=== PATIENT | female | born 1980 | race African-American/Black ===

== ENCOUNTER 2016-11-13 15:06 | Emergency (ER) | payer OTHER ==
[~2016-11-13 15:06] MED LIST: CATAPRES0.1 MG; FLONASE 0.05% N16 G1; LISINOPRIL10 MG; MEDROL PO; SEROQUEL PO; SUDAFED60 MG PO; TESSALON PERLE100 M1 PO; ZANTAC PO; ZITHROMAX PO; ZOFRAN8 MG PO
[2016-11-13 16:04] LABS: BASOPHIL# 0.1 X10e3 (0-0.3); BASOPHIL% 0.6 % (0-2.5); EOSINOPHIL# 0.4 X10e3 (0-0.7); EOSINOPHIL% 3.5 % (0.0-7.0); HEMATOCRIT 40.3 % (35.0-45.0); HEMOGLOBIN 13.1 gm/dL (12.0-16.0); LYMPHOCYTE# 2.8 X10e3 (1.0-3.5); LYMPHOCYTE% 23.6 % (17.0-45.0); MEAN CELL VOLUME 90.8 FL (83-96); MEAN CORPUSCULAR HEMOGLOBIN 29.5 PG (28-34); MEAN CORPUSCULAR HGB CONC 32.4 g/dL (30-36); MEAN PLATELET VOLUME 9.6 FL (6.5-11.5); MONOCYTE# 0.8 X10e3 (0-1.0); MONOCYTE% 6.4 % (3.0-12.0); NEUTROPHIL# 7.8 X10e3 (1.5-7.1); NEUTROPHIL% 65.9 % (40-75); PLATELET COUNT 196 X10e3 (140-420); RED BLOOD COUNT 4.44 X10e (3.90-5.30); RED CELL DISTRIBUTION WIDTH 13.6 % (11.0-15.5); WHITE BLOOD COUNT 11.8 X10e3 (4.0-10.5)
[2016-11-13 16:14] LABS: DIFF IND NO
[2016-11-13 16:27] LABS: AMPHETAMINE NEG (NEG); BARBITURATES NEG (NEG); BENZODIAZEPINES NEG (NEG); COCAINE POS (NEG); MARIJUANA NEG (NEG); OPIATES NEG (NEG); TRICYCLIC ANTIDEPRESSANTS NEG (NEG); U METHADONE NEG (NEG)
[2016-11-13 16:39] LABS: ALKALINE PHOSPHATASE 60 U/L (32-92); ALT (SGPT) 12 U/L (10-40); AST (SGOT) 14 U/L (10-42); BILIRUBIN,TOTAL 0.4 mg/dL (0.2-2.0); BLOOD UREA NITROGEN 17 mg/dL (9-23); BUN/CREATININE RATIO 28.33; CARBON DIOXIDE 25 mmol/L (22-31); CHLORIDE 107 mmol/L (100-111); CREATININE SERUM 0.6 mg/dL (0.6-1.4); GLUCOSE FASTING 89 mg/dL (70-110); LIPASE 20 U/L (22-51); MAGNESIUM 1.9 mg/dL (1.6-3.0); POTASSIUM 3.6 mmol/L (3.5-5.1); PROTEIN TOTAL SERUM 6.8 g/dL (6.0-8.3); SODIUM 138 mmol/L (135-145)
[2016-11-13 16:49] LABS: BILIRUBIN, DIRECT <0.1 mg/dL (0.0-0.2); BILIRUBIN,INDIRECT 0.3 mg/dL (0.0-0.9)
== END 2016-11-13 17:05 | disposition home or self-care (01) ==
LOC: CED 15:06 → CFTX 15:06
PROVIDERS: Physician Assistant
DX: R10.12 Left upper quadrant pain (principal); M25.571 Pain in right ankle and joints of right foot; M25.572 Pain in left ankle and joints of left foot
CPT/HCPCS: 36415; 80048; 80076; 80307; 83690; 83735; 85025; 99284

== ENCOUNTER 2016-12-10 14:20 | Emergency (ER) | payer OTHER | END 2016-12-10 15:36 | disposition home or self-care (01) | LOC: CED 14:20 | DX: J01.90 Acute sinusitis, unspecified (principal); I10 Essential (primary) hypertension; F17.200 Nicotine dependence, unspecified, uncomplicated | CPT/HCPCS: 96372; 99283; J1885 ==

== ENCOUNTER 2017-02-22 13:47 | Emergency (ER) | payer OTHER ==
[~2017-02-22] VITALS: Ht 167.6 cm; Wt 75.7 kg
== END 2017-02-22 14:22 | disposition left against medical advice (07) ==
LOC: CED 13:47
DX: Z53.21 Procedure and treatment not carried out due to patient leaving prior to being seen by health care provider (principal)
CPT/HCPCS: 84703

== ENCOUNTER 2017-02-23 08:42 | Emergency (ER) | payer OTHER ==
[~2017-02-23] VITALS: Ht 167.6 cm; Wt 77.1 kg
[2017-02-23 09:15] LABS: URINE SOURCE CLEAN CATCH
[2017-02-23 09:20] LABS: URINE APPEARANCE TURBID; URINE BILIRUBIN NEG (NEG); URINE BLOOD 2+ (NEG); URINE COLOR DK YELLOW; URINE GLUCOSE NEG (NEG); URINE KETONE NEG (NEG); URINE LEUKOCYTE ESTERASE 3+ (NEG); URINE NITRATE POS (NEG); URINE PH 5.5 (5-8); URINE PROTEIN 2+ (NEG); URINE SPECIFIC GRAVITY 1.024 (1.003-1.035); URINE UROBILINOGEN 0.2 MG/DL (NEG)
[2017-02-23 09:27] LABS: CULTURE INDICATED? YES; URINE BACTERIA AUWI 4+ (NEGATIVE); URINE SQUAMOUS EPITHELIAL CELL OCC /[HPF]; UWBCS1 AUWI INNUM (0-5)
[2017-02-24 22:53] LABS: CHLAMYDIA TRACH Not Detected (Not Detected); N GONOR Not Detected (Not Detected)
== END 2017-02-23 10:27 | disposition home or self-care (01) ==
LOC: CFTX 08:42 → CED 08:42 → CFTX 09:35
PROVIDERS: Nurse Practitioner; Physician Assistant
DX: N76.0 Acute vaginitis (principal); N39.0 Urinary tract infection, site not specified; I10 Essential (primary) hypertension; F17.200 Nicotine dependence, unspecified, uncomplicated
CPT/HCPCS: 81003; 84703; 87086; 87088; 87186; 87491; 87591; 87808; 87905; 96372; 99284; J0696

== ENCOUNTER 2017-03-16 01:00 | Inpatient (IN) | payer OTHER ==
[~2017-03-16] VITALS: Ht 167.6 cm; Wt 77.1 kg
--- NOTE | ~2017-03-16 | DS ---
Unit #: [id number] #: [id number] Patient: WILMAR COELHO [id number] [facility] [address] [place] [address] [id number] MR#: [id number] NAME: WILMAR COELHO. ROOM: P180 Age: 36 Sex: F Admission Date: 03/16/2017 : 1980 Discharge Date: 03/17/2017 Attending Physician: Ricardo Scott M.D. Primary Care Physician: Generic Doctor Not In System DISCHARGE SUMMARY REASON FOR ADMISSION Ms. Coelho is a 36-year-old woman with a history of polysubstance dependence, who reported that she is taking as many "pills" as she can get of oxycodone and hydrocodone, she could not quantify, but states she was unable to detox safely in the outpatient setting and was admitted without suicidal ideation, intent, or plan. DIAGNOSTIC STUDIES LABORATORY RESULTS: Please see hospital chart. HOSPITAL COURSE Ms. Coelho was admitted and placed on the opioid detox protocol. She denied suicidal ideation during my initial interview, and later in the day, she went to the nurses' station demanding discharge against medical advice. She declined appropriate treatment and declined referral to outpatient care when it was offered. As she lacked criteria for involuntary hospitalization, she was discharged at her request. DISCHARGE DIAGNOSES Psychiatric: Opioid dependence, withdrawal, uncomplicated, F11.23. AXIS II No diagnosis. AXIS III Opioid withdrawal and hypertension. BODY AFTER AXIS DISCHARGE INSTRUCTIONS Follow up with primary care physician and NA/AA in the community. DISCHARGE MEDICATIONS None. CONDITION AT DISCHARGE Fair. PROGNOSIS Fair. DIET AND ACTIVITY Ad meri. Unit #: [id number] #: [id number] Patient: WILMAR COELHO Dictated by... Miranda Linares/lainey TD: 03/23/2017 20:29 JOB #: [id number] DISCHARGE SUMMARY Page 1 of 1 X Ricardo Scott MD X DISCHARGE SUMMARY
--- NOTE | ~2017-03-16 | HP ---
Unit #: [id number] #: [id number] Patient: WILMAR MELENDEZ [id number] [place] [address] [id number] MR#: [id number] NAME: WILMAR MELENDEZ. ROOM: P180 Age: 36 Sex: F Admission Date: 03/16/2017 : 1980 Attending Physician: Ricardo Scott M.D. Admitting Physician: Ricardo Scott M.D. Primary Care Physician: Generic Doctor Not In System HISTORY AND PHYSICAL HISTORY OF PRESENT ILLNESS Wilmar is a 36 year old admitted to [facility] because of her continued abuse of opioids. She has had other admissions to this facility for the same. PAST MEDICAL HISTORY 1. Long history of opioid abuse to include IV heroin. 2. High blood pressure. PAST SURGICAL HISTORY D & C. ALLERGIES No known drug allergies. SOCIAL HISTORY Smokes one pack per day. Drinks alcohol rarely. Admits to long history of opioid abuse to include IV drugs. FAMILY HISTORY Medically noncontributory. REVIEW OF SYSTEMS CONSTITUTIONAL: No fever or chills. HEENT: Denies any sore throat, ear pain or runny nose. CARDIOVASCULAR: Denies chest pain, irregular heart rhythm or palpitations. CHEST: Denies shortness of breath or cough. No hemoptysis. GASTROINTESTINAL: Denies nausea, vomiting, diarrhea or chronic constipation. ENDOCRINE: Denies history of increased thirst or urination. No recent significant weight loss or gain. GENITOURINARY: Denies dysuria, frequency, or hematuria. SKIN: Denies any rashes. HEMATOLOGIC: Denies history of increased bleeding or bruising. MUSCULOSKELETAL: Denies any hot, swollen joints. No generalized muscle pain. NEUROLOGIC: Denies problems with vision or speech. No frequent, severe headaches. No numbness, tingling or weakness in any extremities. Denies loss of bladder or bowel control. CURRENT MEDICATIONS Detox protocol Unit #: [id number] #: [id number] Patient: WILMAR MELENDEZ PHYSICAL EXAMINATION GENERAL: Alert, well-nourished, in no apparent distress. VITAL SIGNS: Blood pressure 120/70, heart rate 80, respirations 16, temperature 98.6. WEIGHT: 170. HEIGHT: 5 foot 6 inches. SKIN: Warm and dry without rash or lesion. HEENT: Normocephalic. TMs not viewed. Oral and nasal passages clear. Conjunctivae clear. Pupils equal, round and reactive to light and accommodation. Extraocular movements intact. NECK: Supple without lymphadenopathy or thyromegaly. HEART: Regular rate and rhythm without murmur. LUNGS: Clear. ABDOMEN: Soft, nontender. : Not done. EXTREMITIES: No evidence of cyanosis, clubbing or edema. Moves all extremities without focal deficit. NEUROLOGICAL: Grossly within normal limits. Cranial Nerves: II: Visual solis are intact. III, IV AND : Extraocular movements are intact. Pupils are equal, round and reactive to light. V: Facial sensation is grossly normal. VII: Facial movements and expression are normal. VIII: Auditory acuity grossly intact. IX, X: Uvula is midline. Phonation is normal. XI: Patient shrugs shoulders and turns head normally. XII: Tongue protrudes in the midline. Sensory and Motor Function: Sensory and motor sensation is grossly normal. Motor: moves all extremities well. Coordination: Gait is normal. Deep Tendon Reflexes: Intact. IMPRESSION Psychiatric admission. RECOMMENDATIONS PSYCHIATRIC: Per psychiatrist. MEDICAL: I see no contraindications to participating in facility's activities. MEDICAL PROGNOSIS Good. MEDICAL CONDITION Stable. Dictated by... Jessica Rahman PLucasALucas-Patti. for Miranda Goss/jonas TD: 03/17/2017 01:35 JOB #: [id number] Unit #: [id number] #: [id number] Patient: WILMAR MELENDEZ HISTORY AND PHYSICAL Page 1 of 1 X Jessica Rahman HISTORY AND PHYSICAL
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
== END 2017-03-17 15:40 | disposition left against medical advice (07) | DRG 894 ==
LOC: P1E 12:31
PROC: HZ2ZZZZ Detoxification Services for Substance Abuse Treatment (ICD-10-PCS; principal; 2017-03-17)
DX: F11.23 Opioid dependence with withdrawal (principal); I10 Essential (primary) hypertension; F17.200 Nicotine dependence, unspecified, uncomplicated

== ENCOUNTER 2017-03-19 18:15 | Emergency (ER) | payer OTHER ==
[~2017-03-19] VITALS: Ht 167.6 cm; Wt 76.2 kg
== END 2017-03-19 19:00 | disposition home or self-care (01) ==
LOC: CED 18:15
DX: I10 Essential (primary) hypertension (principal); F17.210 Nicotine dependence, cigarettes, uncomplicated; Z76.0 Encounter for issue of repeat prescription
CPT/HCPCS: 99283

== ENCOUNTER 2017-03-22 17:08 | Emergency (ER) | payer OTHER ==
[~2017-03-22] VITALS: Ht 167.6 cm; Wt 76.2 kg
--- NOTE | ~2017-03-22 | CR127 ---
[facility] A Service of [facility] RADIOLOGY TEXT RESULTS PATIENT: WILMAR MELENDEZ LOCATION: [facility] : [birth year] UNIT #: [id number] AGE: [address]: Lory Chambers SEX: F ORDER DR: [id number] [facility] [address] [place], [place] [address] [id number] MR#: [id number] Acc #: [id number] NAME: WILMAR MELENDEZ : 1980 SEX: F STUDY DATE/TIME: 03/22/2017 18:36 UNIT: [facility] ROOM: STUDY DESCRIPTION: CR Foot Complete Min 3 View Rt Attending Physician: Lory Chambers Pa-C Ordering Physician: Edin Cooley M.D. Primary Care Physician: Primary Care Physician No MEDICAL IMAGING REPORT This report is preliminary unless electronic signature is present EXAM Right foot 3 views HISTORY Laceration to ball of foot around heel. Stepped on broken glass but not sure, injury last night. FINDINGS Three views of the right foot demonstrates no definite radiopaque foreign body. No soft tissue laceration. Osseous structures unremarkable. No arthropathy. Dictated by... Ameya Santoyo M.D. THIS IS AN ELECTRONICALLY VERIFIED REPORT Ameya Santoyo M.D. at 03/24/2017 3:13 PM ZACH/orlin TD: 03/23/2017 11:05 JOB #: [id number] MEDICAL IMAGING REPORT Page 1 of 1 COPY
== END 2017-03-22 19:55 | disposition home or self-care (01) ==
LOC: CED 17:08 → CFTX 17:08
DX: S91.331A Puncture wound without foreign body, right foot, initial encounter (principal); I10 Essential (primary) hypertension; F17.200 Nicotine dependence, unspecified, uncomplicated; W22.8XXA Striking against or struck by other objects, initial encounter; Y93.01 Activity, walking, marching and hiking; Y92.410 Unspecified street and highway as the place of occurrence of the external cause
CPT/HCPCS: 73630; 99283